=== PATIENT | female | born 2000 | race Caucasian/White ===

== ENCOUNTER 2019-12-07 10:42 | Outpatient (CLI) | payer OTHER, SELFPAY ==
--- NOTE | 2019-12-07 10:50 | US_ITS ---
WS: [id number] PELVIC ULTRASOUND REASON FOR VISIT: HEAVY MENSTRUATION/IRREGULAR MENSES TECHNIQUE: Grayscale and Doppler transabdominal and transvaginal pelvic ultrasound. FINDINGS: A small uterus is noted no definite masses are seen in the uterus. The cervix shows nabothian cysts. The right adnexa. Negative. The left adnexa. Negative. There is no fluid seen in the cul-de-sac. Uterus measures 6.8 cm x 4.5 cm x 3.2 cm, right ovary measures 2.9 cm x 2.4 cm x 2.2 cm, and left ova ry measures 3.4 cm x 3.5 cm x 3.0 cm. The left ovary shows a cyst measures 2.75 cm. The endometrium measured 0.66 cm. US/US pelvic with transvaginal IMPRESSION: Functional left ovarian cyst.
== END 2019-12-07 10:43 | disposition home or self-care (01) ==
PROVIDERS: Family Provider Internal Medicine; PCP Nurse Practitioner Family; Visit Provider Nurse Practitioner Family
DX: N83.292 Other ovarian cyst, left side (principal); N92.0 Excessive and frequent menstruation with regular cycle; N92.6 Irregular menstruation, unspecified
CPT/HCPCS: 76830; 76856

== ENCOUNTER → 2020-06-16 13:58 | Outpatient (BNVA) | payer OTHER, SELFPAY | PROVIDERS: Family Provider Internal Medicine; PCP Nurse Practitioner Family; Referring Provider Dermatology; Visit Provider Dermatology | DX: L70.0 Acne vulgaris (principal); L70.8 Other acne | CPT/HCPCS: 99203 ==

== ENCOUNTER → 2020-06-19 15:48 | Outpatient (BNVA) | payer OTHER, SELFPAY | PROVIDERS: Family Provider Internal Medicine; PCP Nurse Practitioner Family; Visit Provider Obstetrics & Gynecology | DX: R10.2 Pelvic and perineal pain (principal); Z30.9 Encounter for contraceptive management, unspecified | CPT/HCPCS: 87491; 87591 ==

== ENCOUNTER → 2020-10-27 08:55 | Outpatient (BNVA) | payer OTHER, SELFPAY | PROVIDERS: Family Provider Internal Medicine; PCP Nurse Practitioner Family; Visit Provider Obstetrics & Gynecology | DX: Z12.4 Encounter for screening for malignant neoplasm of cervix (principal); Z86.19 Personal history of other infectious and parasitic diseases | CPT/HCPCS: 87491; 88175 ==

== ENCOUNTER → 2021-01-20 13:35 | Outpatient (BNVA) | payer OTHER, SELFPAY | PROVIDERS: Family Provider Internal Medicine; PCP Nurse Practitioner Family; Visit Provider Family Medicine | DX: Z13.1 Encounter for screening for diabetes mellitus (principal); N94.6 Dysmenorrhea, unspecified; Z86.19 Personal history of other infectious and parasitic diseases; Z68.41 Body mass index [BMI] 40.0-44.9, adult | CPT/HCPCS: 80048; 84403; 84443 ==

== ENCOUNTER → 2021-03-02 16:37 | Outpatient (BNVA) | payer OTHER, SELFPAY | PROVIDERS: Family Provider Internal Medicine; PCP Nurse Practitioner Family; Visit Provider Nurse Practitioner Family | DX: J11.1 Influenza due to unidentified influenza virus with other respiratory manifestations (principal); J04.0 Acute laryngitis; Z20.822 Contact with and (suspected) exposure to COVID-19; R06.02 Shortness of breath; R50.9 Fever, unspecified | CPT/HCPCS: 87400; 87635 ==

== ENCOUNTER → 2021-04-25 10:36 | Outpatient (BNVA) | payer OTHER, SELFPAY | PROVIDERS: Family Provider Internal Medicine; PCP Nurse Practitioner Family; Visit Provider Emergency Medicine | DX: N39.0 Urinary tract infection, site not specified (principal); R31.9 Hematuria, unspecified | CPT/HCPCS: 81000 ==

== ENCOUNTER → 2021-05-04 11:28 | Outpatient (BNVA) | payer OTHER, SELFPAY | PROVIDERS: Family Provider Internal Medicine; PCP Nurse Practitioner Family; Visit Provider Nurse Practitioner Family | DX: Z20.822 Contact with and (suspected) exposure to COVID-19 (principal); J02.9 Acute pharyngitis, unspecified | CPT/HCPCS: 87635; 87880 ==

== ENCOUNTER 2021-11-30 01:15 | Emergency (ER) | payer OTHER, SELFPAY ==
[2021-11-30 01:19] VITALS: BP 152/93; PULSE 115; RESP 18; TEMP 36.6; O2SAT 98; BMI 41.0
[2021-11-30 01:33] LABS: Basophils # 0.1 10^3/uL (0.0-0.1); Basophils % 0.4 %; Eosinophils # 0.3 10^3/uL (0.0-0.8); Eosinophils % 2.3 %; Hemoglobin 14.2 g/dL (11.5-15.3); Lymphocytes # 3.7 10^3/uL (0.8-4.8); Lymphocytes % 31.4 %; Mean Corpuscular HGB Conc 31.6 g/dL (30.0-36.0); Mean Corpuscular Hemoglobin 26.7 pg (28.0-34.0); Mean Corpuscular Volume 84.6 fl (81-99); Mean Platelet Volume 9.8 fL (7.4-10.4); Monocytes # 0.8 10^3/uL (0.2-0.9); Monocytes % 6.5 %; Neutrophils # 6.87 10^3/uL (1.8-7.7); Neutrophils % 59.1 %; Nucleated Red Blood Cells % 0 %; Platelet Count 355 10^3/cmm (130-400); Red Blood Count 5.32 10^6/uL (4.1-5.3); Red Cell Distribution Width 12.6 % (12.1-15.1); White Blood Count 11.6 10^3/uL (4.0-10.0)
[2021-11-30 01:44] LABS: Add Urine Microscopic? NO; Charge for UA Resulting for Rev
--- NOTE | 2021-11-30 01:44 | USR_ITS ---
PROCEDURE INFORMATION: Exam: US Abdomen, Limited; Right Upper Quadrant Exam date and time: 11/30/2021 1:44 AM Age: 21 years old Clinical indication: Abdominal pain; Acute; Patient HX: Ruq pain plus nausea x 2 days. No history of abdominal surgery. ; Additional info: Ruq pain w/ nausea TECHNIQUE: Imaging protocol: US abdomen. Real time ultrasound with image documentation. Limited exam focused on the right upper quadrant. COMPARISON: US pelvic with transvaginal 12/07/2019 11:38 AM FINDINGS: Liver: 18.2 cm liver. Gallbladder: 2.2 mm gallbladder wall. Sonographically negative Evangelista's sign suggesting no cholecystitis. Common bile duct: 4.8 mm common bile duct. Pancreas: Visualized pancreas is unremarkable. Right kidney: 10.8 x 3.9 x 5.4 cm right kidney with 1.9 cm right renal cortex. Aorta: 1.9 cm abdominal aorta. Inferior vena cava: 1.1 cm IVC. US/US gall bladder [id number] IMPRESSION: Normal gallbladder.
--- NOTE | 2021-11-30 01:46 | ED_ITS ---
HPI - Abdominal Pain General: Chief Complaint: Abdominal Pain Stated Complaint: abd pain top right side Time Seen by Provider: 11/30/21 01:19 History of Present Illness: Patient is a 21-year-old female comes to the ED with abdominal pain and nausea. Symptoms started 2 days ago. Pain is located in the right upper quadrant of the abdomen. She rates her pain currently a 5 out of 10. Pain worsens after she eats. She has never had right upper quadrant abdominal pain like this before. Reports increased episodes of stool over the past couple days and its described as a dark brown paste. Denies any fever, chills, emesis, dysuria, hematuria, vaginal discharge or vaginal bleeding. Associated Symptoms: Reports change in stool character (Increased BM-Dark brown paste) and nausea; Denies chills, constipation, diarrhea, dysuria, fever(s), hematochezia, hematuria and vomiting Related Data: Date of Last Menstrual Period: 11/10/20 Review of Systems Const: Denies: fever(s), chills or fatigue Eyes: Denies: change in vision or eye discomfort ENMT: Denies: throat pain, odynophagia, nasal discharge or nasal congestion Card: Denies: chest pain, palpitations, edema, swelling of feet/ankles, dyspnea on exertion or orthopnea Resp: Denies: dyspnea, productive cough or non-productive cough GI: Reports: abdominal pain, nausea and change in stool character (Increased BM-Dark brown paste); Denies: vomiting, diarrhea, constipation or hematochezia : Denies: flank pain, dysuria, hematuria, vaginal bleeding or vaginal discharge Musc: Denies: neck pain, back pain or extremity swelling Skin/Breast: Denies: rash or new lesions Neuro: Denies: headache(s), numbness in extremities or weakness in extremities PFSH ED PFSH: Medical History Hypothyroidism Inflammatory acne Surgical History No pertinent past surgical history Family History Sister Diabetes Thyroid disease Father Diabetes Social History Smoking and tobacco status: never smoked Alcohol intake: never History of recent travel: No Female Reproductive History: Date of last menstrual period: 11/10/20 Spontaneous abortions: No Physical Exam Const: COMMON NORMALS: patient oriented x3 and alert GENERAL APPEARANCE: cooperative NUTRITIONAL APPEARANCE: obese HENMT: COMMON NORMALS: normocephalic HEAD & SCALP: normocephalic MOUTH: Normal oral and palatal mucosa present THROAT: posterior oropharynx normal and uvula midline Eye: COMMON NORMALS: Equal, round and reactive pupils present and conjunctivae normal CONJUNCTIVA: Yes conjunctivae normal PUPIL: Yes Equal, round and reactive pupils present Neck/C-Spine: COMMON NORMALS: supple GENERAL: Yes normal visual inspection Resp: COMMON NORMALS: normal respiratory effort, No retractions, No use of accessory muscles and clear to auscultation bilaterally AUSCULTATION: clear to auscultation bilaterally Cardio: COMMON NORMALS: regular rate, regular rhythm, S1 normal heart sound present, S2 normal heart sound present, No gallops present (Cardio), No clicks present (Cardio), No murmurs present (Cardio) and Peripheral pulses 2+ throughout RATE: regular rate RHYTHM: regular rhythm HEART SOUNDS: S1 normal heart sound present and S2 normal heart sound present PERIPHERAL PULSES: Peripheral pulses 2+ throughout GI: COMMON NORMALS: Normal to inspection, nondistended, normoactive bowel sounds present, Soft to palpation and no masses INSPECTION: Yes central obesity PALPATION: Yes Soft to palpation and Yes Tenderness to palpation present (GI) Details: RUQ : COMMON NORMALS: Yes no CVA tenderness BLADDER/KIDNEY EXAM: Yes no CVA tenderness Back/Pelvis: COMMON NORMALS: no CVA tenderness Extremity: COMMON NORMALS: normal to inspection Neuro: COMMON NORMALS: patient oriented x3 SENSORIUM/ORIENTATION: Yes alert GAIT: Yes Normal gait present Skin: GENERAL SKIN EXAM: dry skin Course Reevaluation(s): Reevaluation #1: After patient received IV morphine Zofran and fluids her symptoms completely resolved. She was not having any more right upper quadrant abdominal pain or nausea. Patient is ready to go home and rest. Time: 03:10 Vital Signs: Vital signs: Vital Signs Temperature 97.8 F 11/30/21 01:19 Pulse Rate 115 H 11/30/21 01:19 Respiratory Rate 18 11/30/21 01:52 Blood Pressure 152/93 11/30/21 01:19 Pulse Oximetry 98 11/30/21 01:19 MDM - Abdominal Pain Medical Decision Making Patient is a 21-year-old female comes to the ED with right upper quadrant abdominal pain and nausea. Symptoms started approximately 2 days ago. Worsens after eating. Vitals stable and patient is slightly tacky at 115 bpm, but during history and physical exam she was consistently around 100 to 110 bpm. Patient is an obese 21-year-old female that appears nontoxic and in no acute distress. She is right upper quadrant tenderness upon palpation. The rest of exam is benign. Patient is a white blood cell count 11.6 but the rest the labs are unremarkable. hCG negative. Ultrasound gallbladder shows no acute findings or gallstones seen. Patient was stable for discharge home and diagnosed with biliary colic.She was sent home with a prescription for Zofran. Start with a clear liquid diet for the next 24 hours then slowly advance as tolerated. She was told to follow-up with her PCP in 5 to 7 days for reevaluation. Return ED precautions given. Lab Data I reviewed the patient's lab results. : 11/30/21 01:21 11/30/21 01:21 Labs/Radiology: Laboratory Results WBC 11.6 10^3/uL (4.0-10.0) H 11/30/21 01:21 RBC 5.32 10^6/uL (4.1-5.3) H 11/30/21 01:21 Hgb 14.2 g/dL (11.5-15.3) 11/30/21 01:21 Hct 45.0 % (37.0-47.0) 11/30/21 01:21 MCV 84.6 fl (81-99) 11/30/21 01:21 MCH 26.7 pg (28.0-34.0) L 11/30/21 01:21 MCHC 31.6 g/dL (30.0-36.0) 11/30/21 01:21 RDW 12.6 % (12.1-15.1) 11/30/21 01:21 Plt Count 355 10^3/cmm (130-400) 11/30/21 01:21 MPV 9.8 fL (7.4-10.4) 11/30/21 01:21 Neut % (Auto) 59.1 % 11/30/21 01:21 Lymph % (Auto) 31.4 % 11/30/21 01:21 [place] % (Auto) 6.5 % 11/30/21 01:21 Eos % (Auto) 2.3 % 11/30/21 01:21 Baso % (Auto) 0.4 % 11/30/21 01:21 Neut # (Auto) 6.87 10^3/uL (1.8-7.7) 11/30/21 01:21 Lymph # (Auto) 3.7 10^3/uL (0.8-4.8) 11/30/21 01:21 [place] # (Auto) 0.8 10^3/uL (0.2-0.9) 11/30/21 01: Eos # (Auto) 0.3 10^3/uL (0.0-0.8) 11/30/21 01: Baso # (Auto) 0.1 10^3/uL (0.0-0.1) 11/30/21 01:21 Nucleated RBC % (auto) 0 % 11/30/21 01: Nucleated RBCs # 0.0 /100WBC 11/30/21 01:21 Sodium 135 mmol/L (136-145) L 11/30/21 01:21 Potassium 4.2 mmol/L (3.5-5.1) 11/30/21 01:21 Chloride 100 mmol/L (98-107) 11/30/21 01:21 Carbon Dioxide 25 mmol/L (22-29) 11/30/21 01:21 Anion Gap 14.2 (5-19) 11/30/21 01:21 BUN 12 mg/dL (6-20) 11/30/21 01:21 Creatinine 0.7 mg/dL (0.5-0.9) 11/30/21 01:21 GFR Calculation 104.6 mL/min (90-130) 11/30/21 01:21 Glucose 102 mg/dL (65-115) 11/30/21 01:21 Calculated Osmolality 280 mOsm/kg (285-295) L 11/30/21 01:21 Calcium 8.9 mg/dL (8.5-10.5) 11/30/21 01:21 Total Bilirubin 0.2 mg/dL (0.15-1.2) 11/30/21 01:21 AST 16 U/L (0-32) 11/30/21 01:21 ALT 19 U/L (0-33) 11/30/21 01:21 Alkaline Phosphatase 91 IU/L (35-105) 11/30/21 01:21 Total Protein 8.2 g/dL (6.6-8.7) 11/30/21 01:21 Albumin 4.3 g/dL (3.5-5.2) 11/30/21 01:21 Globulin 3.9 g/dL (1.3-4.6) 11/30/21 01:21 Lipase 15 U/L (13-60) 11/30/21 01:21 HCG, Qual Negative (Negative) 11/30/21 01:21 Urine Color Yellow (Yellow) 11/30/21 01:32 Urine Appearance Clear (CLEAR) 11/30/21 01:32 Urine pH 6.5 (5-7) 11/30/21 01:32 Ur Specific T[place] 1.020 (1.005-1.030) 11/30/21 01:32 Urine Protein Neg (Negative) 11/30/21 01:32 Urine Glucose (UA) Norm (Normal) 11/30/21 01:32 Urine Ketones Negative (Negative) 11/30/21 01:32 Urine Blood Neg (Negative) 11/30/21 01:32 Urine Nitrate Negative (Negative) 11/30/21 01:32 Urine Bilirubin Neg (Negative) 11/30/21 01:32 Urine Urobilinogen Norm mg/dL (Negative) 11/30/21 01:32 Ur Leukocyte Esterase Negative (Negative) 11/30/21 01:32 Imaging Data US: Radiologist's impression: Ultrasound gallbladder?prelim report?no acute findings seen, common bile duct normal and no gallstones noted. Discharge Plan Discharge Patient Disposition: Home Clinical Impression: Biliary colic Condition: Stable Prescriptions: New ondansetron 4 mg tablet,disintegrating 4 mg PO Q8H PRN (Reason: nausea and vomiting) Qty: 20 0RF No Action levothyroxine 25 mcg tablet 25 mcg PO DAILY 30 Days Qty: 30 2RF metformin 500 mg tablet 500 mg PO DAILY 30 Days Qty: 30 2RF Discharge Orders: Discharge ED (Routine); Ordered 11/30/21 Ordered By: Ant Cullen Referrals: Francia Giles [Primary Care Provider] - Discharge Diet: Advance as tolerated and Clear Liquid Discharge Activity: Increase activity as tolerated Patient Instructions: Biliary Colic (ED), Low Fat Diet (ED), Clear Liquid Diet (ED) Activity Restrictions/Additional Instructions: Follow-up with your primary care physician within the next 5 to 7 days for reevaluation. In the next 24 hours do a clear liquid diet then slowly advance as tolerated. Take medications as prescribed. You can take [id number] Tylenol or Motrin for pain. Return to the ER or your medical provider if condition worsens. Please read and understand discharge instructions. Thank you for choosing [facility] for your healthcare needs today. Please realize this is an emergency room and that we are providing you with a medical screening exam and this may not be complete and all inclusive of all the testing and or work up that you may need to determine your ailment or severity of your illness. It is very important that you follow up as instructed or that you return to the Emergency Department should you have concerns or if your condition changes or worsens in any way. Coding Level of Care Code ED Medical Science Liaison for Summer Alejandro Exam Comprehensive
[2021-11-30] MEDS: ondansetron 2 mg/ML SDV 2 mL 4 MG IVP (01:51)
[2021-11-30 01:52] VITALS: RESP 18
[2021-11-30] MEDS: morphine 4 mg/mL SDV 1 mL 2 MG IVP (01:52)
[2021-11-30 02:07] LABS: Alanine Aminotransferase 19 U/L (0-33); Albumin Level 4.3 g/dL (3.5-5.2); Alkaline Phosphatase 91 IU/L (35-105); Anion Gap 14.2 (5-19); Aspartate Amino Transferase 16 U/L (0-32); Blood Urea Nitrogen 12 mg/dL (6-20); Calcium 8.9 mg/dL (8.5-10.5); Carbon Dioxide 25 mmol/L (22-29); Chloride 100 mmol/L (98-107); Globulin 3.9 g/dL (1.3-4.6); Glomerular Filtration Rate 104.6 mL/min (90-130); Glucose 102 mg/dL (65-115); Lipase 15 U/L (13-60); Osmolality Calculated 280 mOsm/kg (285-295); Potassium 4.2 mmol/L (3.5-5.1); Sodium 135 mmol/L (136-145); Total Bilirubin 0.2 mg/dL (0.15-1.2); Total Protein 8.2 g/dL (6.6-8.7)
[2021-11-30 02:11] LABS: Bilirubin Urine Neg (Negative); Blood Urine Neg (Negative); Glucose Urine UA Norm (Normal); Ketones Urine Negative (Negative); Leukocyte Esterase Urine Negative (Negative); Nitrate Urine Negative (Negative); Protein Urine Neg (Negative); Urine Appearance Clear (CLEAR); Urine Color Yellow (Yellow); Urobilinogen Urine Norm (Negative); pH Urine 6.5 (5-7)
[2021-11-30 02:12] LABS: HCG, Serum Qual Negative (Negative)
[2021-11-30] MEDS: sodium chloride 0.9% 1,000 ML 999 ML IV (02:42)
== END 2021-11-30 03:19 | disposition home or self-care (01) ==
PROVIDERS: Emergency Provider Physician Assistant; PCP Nurse Practitioner Family
DX: K80.50 Calculus of bile duct without cholangitis or cholecystitis without obstruction (principal); Z79.84 Long term (current) use of oral hypoglycemic drugs
CPT/HCPCS: 76705; 80053; 81003; 83690; 84703; 85025; 96361; 96374; 96375; 99284; J2270; J2405; J7030

== ENCOUNTER → 2022-03-19 12:02 | Outpatient (BNVA) | payer OTHER, SELFPAY | PROVIDERS: PCP Nurse Practitioner Family; Visit Provider Emergency Medicine | DX: J02.9 Acute pharyngitis, unspecified (principal) | CPT/HCPCS: 87071; 87880 ==

== ENCOUNTER → 2022-06-18 11:12 | Outpatient (BNVA) | payer OTHER, SELFPAY | PROVIDERS: PCP Nurse Practitioner Family; Visit Provider Emergency Medicine | DX: J02.9 Acute pharyngitis, unspecified (principal); R19.8 Other specified symptoms and signs involving the digestive system and abdomen; R10.9 Unspecified abdominal pain; K80.50 Calculus of bile duct without cholangitis or cholecystitis without obstruction; R10.11 Right upper quadrant pain | CPT/HCPCS: 80053; 83690; 85025; 87071; 87338; 87880 ==

== ENCOUNTER → 2022-06-21 10:05 | Outpatient (BNVA) | payer OTHER, SELFPAY | PROVIDERS: PCP Nurse Practitioner Family; Visit Provider Emergency Medicine | DX: R19.8 Other specified symptoms and signs involving the digestive system and abdomen (principal) | CPT/HCPCS: 87338 ==

== ENCOUNTER 2022-07-20 08:59 | Outpatient (CLI) | payer OTHER, SELFPAY ==
--- NOTE | 2022-07-20 10:00 | NM_ITS ---
WS: [id number] NUCLEAR MEDICINE HIDA SCAN CLINICAL INFORMATION: R10.9 - Unspecified abdominal pain TECHNIQUE: Following intravenous administration of 7.5 mCi of technetium 99m mebrofenin, images of th e abdomen were obtained over the course of 60 minutes. Next, gallbladder ejection fraction was determ ined by obtaining preprandial and one-hour postprandial images of the gallbladder following oral austyn stion of Ensure. COMPARISON: Ultrasound gallbladder November 30, 2019 FINDINGS: Mild hepatomegaly. Normal hepatic uptake at 5 minutes. Normal hepatic excretion. Normal common bile d uct and small bowel activity. Gallbladder is not visualized by 60 minutes. Imaging extended to 120 mi nutes without gallbladder visualization. Findings suspicious for acute cholecystitis. Recommend clini vera correlation. NM/NM hepatobiliary w phar* [id number] IMPRESSION: 1. No gallbladder uptake at 2 hours suspicious for cystic duct obstruction wit h acute cholecystitis. Recommend correlation with clinical symptoms. 2. Normal common bile duct and small bowel activity. 3. Mild hepatomegaly.
== END 2022-07-20 09:00 | disposition home or self-care (01) ==
PROVIDERS: PCP Nurse Practitioner Family; Visit Provider Emergency Medicine
DX: R10.9 Unspecified abdominal pain (principal); K80.50 Calculus of bile duct without cholangitis or cholecystitis without obstruction; R16.0 Hepatomegaly, not elsewhere classified
CPT/HCPCS: 78227; A9537

== ENCOUNTER 2022-08-09 06:55 | Day surgery (SDC) | payer OTHER, SELFPAY ==
[2022-08-06 11:30] VITALS: BMI 41.8
[2022-08-09] VITALS (12 sets, daily range): BP systolic 111–158; BP diastolic 72–93; PULSE 65–95; RESP 12–20; TEMP 36.3–37.2; O2SAT 93–100
[2022-08-09 07:25] LABS: OR HCG Qualitative Urine Negative (Negative)
--- NOTE | 2022-08-09 08:07 | ANES.PREANE2 ---
Pre-Anesthetic Assessment Height/Weight: Height 1.73 m Weight 124.738 kg Temp Pulse Resp BP Pulse Ox O2 Del Method 97.4 F L 94 18 155/90 99 08/09/22 07:21 08/09/22 07:21 08/09/22 07:21 08/09/22 07:21 08/09/22 07:21 08/09/22 07:29 Preop Diagnosis: Biliary Dyskinesia Operation Date: 08/09/22 08:20 Proposed Procedures p Laparoscopic Cholecystectomy 35522,K82.8(Not Applicable) - John Dominique DO Familial anesthetic complications: none Was Beta Luis taken within 24 hours: N/A Was Clonidine taken within 24 hours: N/A Last intake: Intake Last Liquid Date 08/08/22 Last Liquid Time 18:00 Last Solid Date 08/08/22 Last Solid Time 18:00 Social No alcohol and No tobacco Exam alert, oriented x 3, clear to auscultation bilaterally and regular rate & rhythm Airway Submandibular: within normal limits Cervical ROM: within normal limits Mallampati: Class II Dentition: full Metabolic Diabetes Mellitus, Morbid Obesity and Thyroid Disease Anesthetic Plan ASA status: 2 Anesthesia: General Medications/Allergies Home Medications Medication Instructions Recorded Confirmed Last Taken Type levothyroxine 25 mcg tablet 25 mcg PO DAILY #90 tabs 03/09/22 08/09/22 1 Day Ago Rx ~08/08/22 metformin 500 mg tablet,extended 1,000 mg PO BID #360 tabs 03/09/22 08/09/22 1 Day Ago Rx release 24 hr ~08/08/22 Allergies Allergy/AdvReac Type Severity Reaction Status Date / Time No Known Allergies Allergy Verified 08/09/22 07:31 [facility] Anesthesia Medical History Hypothyroidism Inflammatory acne Surgical History No pertinent past surgical history Family History Sister Diabetes Thyroid disease Father Diabetes Social History Smoking and tobacco status: never smoked Alcohol intake: never History of recent travel: No Female Reproductive History Date of last menstrual period: 11/10/20 Spontaneous abortions: No Data Anesthesia Cardiac Studies: No Data to Display
--- NOTE | 2022-08-09 08:10 | W.PM.OPSUD ---
Surgery/Procedure H&P Update DATE OF PROCEDURE: August 09, 2022 DATE H&P PERFORMED: 07/30/22 PREOP DIAGNOSIS: Biliary Dyskinesia PLANNED PROCEDURE: Operation Date: 08/09/22 08:20 Proposed Procedures p Laparoscopic Cholecystectomy 77850,K82.8(Not Applicable) - John Dominique DO
[2022-08-09] MEDS: sodium chloride 0.9% 1,000 ML 30 ML IV (08:31)
[2022-08-09] MEDS: ceFAZolin 2,000 MG in sodium chloride 0.9% (plus) 50 ML 100 MG IV (08:58)
--- NOTE | 2022-08-09 09:28 | P.OP_ITS ---
Operative Report Date of procedure: August 09, 2022 Pre-op diagnosis: Preop Diagnosis cholecystitis Post-op diagnosis: same Procedure done: Laparoscopic cholecystectomy Specimens removed/disposition: Gallbladder Surgeon: Dr. John Dominique DO Anesthesia: General Estimated blood loss (mL): 5 Complications: None apparent Brief History: This is a very pleasant 22-year-old female who had nonvisualization of the gallbladder on HIDA. Cholecystectomy was indicated. The risks and benefits were explained and documented. Procedure: Patient was wheeled into the operative room and placed on the OR table in a supine position. Abdomen was inspected prepped and draped in usual sterile fashion. Time-out was performed and all present were in agreement. A 15 blade scalp was used to make a stab incision in the left upper quadrant and intra- abdominal insufflation was achieved using a Veress needle. After localizing the tissue incisions were made and a 5 millimeter trocar was placed into the umbilicus as well as 2 in the right upper quadrant. A 12 millimeter trocar was placed in the epigastrium. Gallbladder was grasped and elevated. The triangle of Calot was carefully dissected using blunt dissection and electrocautery until the triangle of Calot clearly identified. The cystic duct was clipped proximally and double clipped distally. The duct was then ligated proximally. The cystic artery was doubly clipped and ligated. The gallbladder was then removed from the liver bed using electrocautery. The gallbladder was removed from the abdomen using an Endo-Catch bag through the epigastric incision. The liver bed was inspected and no bleeding was seen. The abdomen was irrigated and suctioned. All ports removed. Skin was washed and dried. Incisions were closed with 3-0 and 4-O Vicryl in a subcuticular interrupted fashion. Skin glue was applied. Patient tolerated the procedure well.
[2022-08-09] MEDS: fentaNYL 50 mcg/mL INJ 2mL IVP ×2 (09:50→10:05)
--- NOTE | 2022-08-09 10:11 | SUR.PHASEI ---
0940 PT TO PACU 5 AWAKES TO VOICE, GOOD RESP NOTED IV TO LT HAND #20 WITH NS 100ML AT KVO RATE PER GRAVITY. ID BRACELET TO RT WRIST PT ID'D TO RT WRIST. BILAT SCDS ON, ABDOMEN SOFT WITH 4 SITES WITH SKIN GLUE. MONITOR SR WITH NO ECTOPY.
[2022-08-09] MEDS: HYDROcodone-acetaminophen 7.5-325 mg Tablet 1 TAB PO (11:00)
--- NOTE | 2022-08-09 14:43 | ANE.PACU2 ---
Inpatient post-anesthesia follow up: Airway intact: Yes Vital signs: Temperature 97.9 F Pulse Rate 65 Respiratory Rate 18 Blood Pressure 118/72 Pulse Oximetry 99 Oxygen Delivery Me thod Room Air Oxygen Flow Rate 8 Fraction of Inspir ed Oxygen Hydration adequate: Yes Nausea and vomiting: No Pain level: 3 Mental status: Baseline
== END 2022-08-09 11:35 | disposition home or self-care (01) ==
PROVIDERS: Anesthesiology; PCP Nurse Practitioner Family; Visit Provider Surgery
PROC: 0FT44ZZ Resection of Gallbladder, Percutaneous Endoscopic Approach (ICD-10-PCS; CPT 47562; principal; 2022-08-09 08:10)
DX: K82.8 Other specified diseases of gallbladder (principal); E11.9 Type 2 diabetes mellitus without complications; E66.01 Morbid (severe) obesity due to excess calories; Z68.41 Body mass index [BMI] 40.0-44.9, adult; Z79.84 Long term (current) use of oral hypoglycemic drugs
CPT/HCPCS: 47562; 81025; 84703; 88304; J0690; J1100; J1200; J2250; J2405; J2704; J3010; J3490; J7030

== ENCOUNTER → 2023-05-04 14:54 | Outpatient (BNVA) | payer OTHER, SELFPAY | PROVIDERS: PCP Nurse Practitioner Family; Visit Provider Emergency Medicine | DX: J02.9 Acute pharyngitis, unspecified (principal) | CPT/HCPCS: 87071; 87880 ==

== ENCOUNTER 2023-06-28 06:52 | Outpatient (CLI) | payer SELFPAY ==
[2023-06-28 07:07] LABS: HF Add Manual Diff No
[2023-06-28 07:12] LABS: Basophils % 0.3 %; Eosinophils # 0.2 10^3/uL (0.0-0.8); Eosinophils % 1.7 %; Hematocrit 39.8 % (36-47); Lymphocytes # 3.4 10^3/uL (0.8-4.8); Lymphocytes % 29.9 %; Mean Corpuscular HGB Conc 31.9 g/dL (30-55); Mean Corpuscular Hemoglobin 27.4 pg (27-33); Mean Platelet Volume 10.3 fL (7.4-10.4); Monocytes # 0.8 10^3/uL (0.2-0.9); Monocytes % 7.1 %; Neutrophils # 6.97 10^3/uL (1.8-7.7); Neutrophils % 60.7 %; Nucleated Red Blood Cells % 0 %; Platelet Count 301 10^3/cmm (157-399); Red Blood Count 4.63 10^6/uL (3.85-5.65); Red Cell Distribution Width 12.7 % (12.1-15.1); White Blood Count 11.46 10^3/uL (3.29-11.43)
[2023-06-28 07:25] LABS: Estmated Average Glucose 105; Hemoglobin A1C 5.3 % (4.0-6.0)
[2023-06-28 07:43] LABS: Alanine Aminotransferase 11 U/L (0-33); Albumin Level 3.8 g/dL (3.5-5.2); Alkaline Phosphatase 60 U/L (35-105); Anion Gap 11.1 (5-19); Aspartate Amino Transferase 11 U/L (0-32); Blood Urea Nitrogen 8 mg/dL (6-20); Calcium 8.9 mg/dL (8.5-10.5); Carbon Dioxide 26 mmol/L (22-29); Chloride 104 mmol/L (98-107); Cholesterol 152 mg/dL (0-200); Glomerular Filtration Rate 122.8 mL/min (90-130); Glucose 82 mg/dL (65-115); HDL Cholesterol 40 mg/dL (60-100); LDL Cholesterol Calculated 91 mg/dL (50-129); LDL HDL Ratio 2.28 RATIO (0.00-3.22); Osmolality Calculated 281 mOsm/kg (285-295); Potassium 4.1 mmol/L (3.5-5.1); Sodium 137 mmol/L (136-145); Thyroid Stimulating Hormone 2.39 uIU/mL (0.27-4.20); Total Bilirubin 0.4 mg/dL (0.15-1.2); Total Protein 6.8 g/dL (6.6-8.7); Triglycerides 105 mg/dL (0-150)
== END 2023-06-28 06:53 | disposition home or self-care (01) ==
PROVIDERS: PCP Nurse Practitioner Family; Visit Provider Dermatology
DX: Z01.89 Encounter for other specified special examinations (principal)

== ENCOUNTER → 2023-10-03 09:52 | Outpatient (BNVA) | payer OTHER, SELFPAY | PROVIDERS: PCP Nurse Practitioner Family; Visit Provider Nurse Practitioner Family | DX: J02.9 Acute pharyngitis, unspecified (principal); J06.9 Acute upper respiratory infection, unspecified | CPT/HCPCS: 87071; 87880 ==

== ENCOUNTER → 2024-03-14 15:22 | Outpatient (BNVA) | payer OTHER, SELFPAY | PROVIDERS: PCP Nurse Practitioner Family; Visit Provider Nurse Practitioner Women's Health | DX: Z12.4 Encounter for screening for malignant neoplasm of cervix (principal); Z11.3 Encounter for screening for infections with a predominantly sexual mode of transmission | CPT/HCPCS: 87491; 87591; 88175 ==

== ENCOUNTER → 2025-01-15 14:46 | Outpatient (BNVA) | payer OTHER, SELFPAY | PROVIDERS: PCP Nurse Practitioner Family; Visit Provider Podiatrist Foot & Ankle Surgery | DX: M79.672 Pain in left foot (principal); M72.2 Plantar fascial fibromatosis | CPT/HCPCS: 73630 ==

== ENCOUNTER → 2025-05-03 15:46 | Outpatient (BNVA) | payer SELFPAY | PROVIDERS: PCP Nurse Practitioner Family; Visit Provider Emergency Medicine | DX: Z20.2 Contact with and (suspected) exposure to infections with a predominantly sexual mode of transmission (principal); J02.9 Acute pharyngitis, unspecified; R39.9 Unspecified symptoms and signs involving the genitourinary system | CPT/HCPCS: 81000; 81513; 87071; 87481; 87491; 87591; 87661; 87880 ==